=== PATIENT | male | born 2000 | race Caucasian/White ===

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

== ENCOUNTER 2025-04-30 11:32 | Outpatient (CLI) | payer OTHER, SELFPAY ==
--- OUTSIDE RECORDS SUMMARY | 2025-05-02 11:35 | XMS_ITS | Patient Health Record ---
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 Phone Leila Saleh Primary Care Provider [phone] [place] Unavailable [phone] Reason For Referral No Information Medications Medication SIG (Take, Route, Frequency, Duration) Notes Start Date End Date Status Mupirocin 2 % 1 david applied topically 3 times a day 08/04/2020 Active Immunizations Vaccine Route Administration Date Status Comme nts Varivax SC Subcutaneous 03/17/2008 Administered Tetanus Tdap-Adacel (over 7yrs) IM Intramuscular 02/18/2014 Administered Tetanus Dtap-Daptacel (under 7yrs) IM Intramuscular 03/17/2008 Administered MMR SC Subcutaneous 03/17/2008 Administered Menactra IM Intramuscular 02/18/2014 Administered Menactra IM Intramuscular 11/01/2018 Administered IPV IM Intramuscular 03/17/2008 Administered Hep A- Pediatric IM Intramuscular 02/26/2018 Administered Hep A- Pediatric IM Intramuscular 11/01/2018 Administered Problems Problem Type SNOMED Code ICD Code Onset Dates Problem Status W/U Status Risk Notes Problem History and physical examination, sports participation (procedure) (449364263) Routine sports physical exam (Z02.5) Active confirmed Problem Urticaria (007655947) Urticaria (L50.9) Active confirmed Plan Of Treatment No Information Insurance Providers Payer Name Payer Address Payer Phone Subscriber Number Group Number Insured Name Patient Relationship to Insured Coverage Start Date Coverage End Date [facility] [address] [place] [address] [id number] SANCHEZ ROSA Self - patient is the insured Medical (General) History Surgical History Surgery Date(Month/Year) Hospitalization History Reason Date(Month/Year) [facility]-possible concussion 03/2016
--- OUTSIDE RECORDS SUMMARY | 2025-05-02 11:36 | XMS_ITS | Clinical Summary ---
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 Name Role Phone Chaim Saleh MD Primary Care Provider [phone] Family History Medical History Relation Name Comments Hypertension Father Relation Name Status Comments Father Social History Tobacco Use Types Packs/Day Years Used Date Smoking Tobacco: Never Sex and Gender Information Value Date Recorded Sex Assigned at Not on file Legal Sex Male 7:06 PM EDT Gender Identity Not on file Sexual Orientation Not on file Last Filed Vital Signs Vital Sign Reading Time Taken Comments Blood Pressure 134/74 06/08/2020 7:19 AM EST Pulse 72 06/08/2020 7:19 AM EST Temperature - - Respiratory Rate - - Oxygen Saturation - - Inhaled Oxygen Concentration - - Weight 70.3 kg (155 lb 0.1 oz) 06/08/2020 7:19 A M EST Height 170.2 cm (5' 7 ) 06/08/2020 7:19 AM EST Body Mass Index 24.28 06/08/2020 7:19 AM EST Plan of Treatment Not on file Care Teams [employer] Special Agent Relationship Specialty Start Date End Date Chaim Saleh MD [address] [place] [address] PCP - General 12/18/20
== END 2025-04-30 23:59 ==
LOC: LAB.DROPOF 05-02 11:33
PROVIDERS: PCP Family Medicine; Visit Provider Family Medicine
DX: J02.9 Acute pharyngitis, unspecified (principal)
CPT/HCPCS: 87070